=== PATIENT | female | born 1995 | race Two or more races ===

== ENCOUNTER 2019-03-24 16:09 | Emergency (ER) | payer MEDICAID ==
--- NOTE | 2019-03-24 16:29 | EDM.PDOC ---
ED HPI GENERAL MEDICAL PROBLEM - General Chief Complaint: Skin Complaint Stated Complaint: FACE RASH Time Seen by Provider: 03/24/19 16:19 Source of Information: Reports: Patient, RN Notes Reviewed History Limitations: Reports: No Limitations - History of Present Illness INITIAL COMMENTS - FREE TEXT/NARRATIVE: Patient is a 23-year-old female who presents to the ED for evaluation of a facial rash. Patient notes that around 05 March, she use some new facial products. And she noticed she developed a rash on her upper lip, a couple days later. This is in the bucchal folds, like her smile lines.. She states that she went to the walk-in clinic on 1016, and was given triamcinolone cream for this, and still hasn't helped her gotten much better. She notes that the pain is around an 8 out of 10 today. She went back to the walk-in clinic, and she was given mupirocin, but states that this made the rash sting, so she comes to the ER for evaluation. She notes that the dry air aggravates the pain, and makes the rash her worse. She notes this to be a burning/throbbing/cardiac swelling or full feeling in nature. She notes that she took one dose of Tylenol this morning, but has not taken it since, as she does not like to take medications much. 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: Psychiatric History: Reports: Anxiety - Past Surgical History HEENT Surgical History: Reports: Other (See Below) Other HEENT Surgeries/Procedures: one wisdom tooth removed Female Surgical History: Reports: D&C Social & Family History - Family History Family Medical History: Noncontributory Oncologic: Reports: Cervix, Ovarian - Caffeine Use Caffeine Use: Reports: Coffee ED ROS GENERAL - Review of Systems Review Of Systems: See Below Constitutional: Denies: Fever, Chills HEENT: Reports: No Symptoms Respiratory: Denies: Shortness of Breath Cardiovascular: Denies: Chest Pain Endocrine: Reports: No Symptoms GI/Abdominal: Denies: Constipation, Diarrhea, Nausea, Vomiting : Reports: No Symptoms Musculoskeletal: Reports: No Symptoms Skin: Reports: Rash (SEE HPI) Neurological: Reports: No Symptoms Psychiatric: Reports: No Symptoms ED EXAM, SKIN/RASH Exam: See Below Exam Limited By: No Limitations General Appearance: Alert, WD/WN, No Apparent Distress Eye Exam: Bilateral Eye: EOMI, Normal Inspection, PERRL Throat/Mouth: Normal Inspection, Normal Lips, Normal Teeth, Normal Gums, Normal Oropharynx, Normal Voice, No Airway Compromise Head: Atraumatic, Normocephalic, Facial Tenderness (facial rash, see skin assessment) Neck: Normal Inspection Respiratory/Chest: No Respiratory Distress, Lungs Clear, Normal Breath Sounds, No Accessory Muscle Use, Chest Non-Tender Cardiovascular: Normal Peripheral Pulses, Regular Rate, Rhythm, No Murmur Extremities: Normal Inspection, Normal Capillary Refill Neurological: Alert, Oriented, Normal Cognition, No Motor/Sensory Deficits Psychiatric: Normal Affect, Normal Mood Skin: Warm, Dry, Intact, Normal Color, Rash (Erythematous raised rash, this looks like a comma kathy on both sides of her cheeks, there is some crusting noted, and looks rather irritated.) Location, Skin: Face Characteristics: Macular (raised, plaque-like), Erythematous Associated features: Crusting Front/Back Body Diagram: 1 - rash 2 - rash Course - Vital Signs Last Recorded V/S: Last Vital Signs Temp 98.4 F 03/24/19 16:19 Pulse 114 H 03/24/19 16:19 Resp 18 03/24/19 16:19 BP 142/98 H 03/24/19 16:19 Pulse Ox 99 03/24/19 16:19 - Orders/Labs/Meds Meds: Medications Discontinued Medications Generic Name Dose Route Start Last Admin Trade Name Freq PRN Reason Stop Dose Admin Ketorolac Tromethamine 30 mg 03/24/19 16:37 Toradol IM 03/24/19 16:38 ONETIME ONE - Re-Assessments/Exams Free Text/Narrative Re-Assessment/Exam: 03/24/19 16:49 Patient presents to the ED for evaluation of her rash. It does appear that this started as a contact irritant in nature. It appears that the triamcinolone hasn' t really helped much. I will start her on Oral prednisone, and recommend that she use vaseline to keep the rash as moist as possible. She can use tylenol or ibuprofen for further pain relief. Departure - Departure Time of Disposition: 16:52 Disposition: Home, Self-Care 01 Condition: Fair Clinical Impression: Contact dermatitis Qualifiers: Contact dermatitis type: irritant Contact dermatitis trigger: cosmetics Qualified Code(s): L24.3 - Irritant contact dermatitis due to cosmetics - Discharge Information *PRESCRIPTION DRUG MONITORING PROGRAM REVIEWED*: No *COPY OF PRESCRIPTION DRUG MONITORING REPORT IN PATIENT CATHERINE: No Prescriptions: predniSONE 20 mg PO ASDIRECTED #15 tab Instructions: Contact Dermatitis Referrals: Lakesha Moraes MD [Primary Care Provider] - Forms: ED Department Discharge Additional Instructions: You were evaluated in the ER today regarding your facial rash. It is likely that your rash started as a contact irritant in nature, and has just not gotten better. You were started on a course of oral prednisone, please take as directed. This was your electronically prescribed to the [place] pharmacy located in the [facility]. Recommend that you keep the rash well moistened with Vaseline. You may take 600 mg ibuprofen or 500 mg Tylenol every 6 hours as needed for further pain relief. Do not exceed 4000 mg Tylenol or 3200 mg ibuprofen in a 24 -hour time span. You may try to use ice packs to the area as well to help relieve the swelling. Please return to the ED if your symptoms should change or worsen
[2019-03-24] MEDS ORDERED: Ketorolac 30 MG/ML SDV IM ONE (16:37)
== END 2019-03-24 17:11 | disposition home or self-care (01) ==
LOC: JD.ED 16:09
DX: L24.3 Irritant contact dermatitis due to cosmetics (principal)
CPT/HCPCS: 96372; 99282; J1885

== ENCOUNTER 2021-09-30 08:56 | Emergency (ER) | payer MEDICAID ==
[2021-09-30] MEDS ORDERED: Ketorolac 15 MG/ML SDV IVPUSH ONE (09:40)
[2021-09-30] MEDS ORDERED: Iopamidol 755 Mg/ML 100 ML Bottle IVPUSH ONE (09:48)
[2021-09-30] MEDS: Sodium Chloride 0.9% 10 ML Syringe FLUSH PRN ×2 (09:49→10:06)
[2021-09-30] MEDS ORDERED: Sodium Chloride 0.9% 100 ML IV SCH (10:00)
[2021-09-30] MEDS ORDERED: LORazepam 0.5 MG Tab PO ONE (10:41)
== END 2021-09-30 11:05 | disposition home or self-care (01) ==
LOC: JD.ED 08:56
DX: R07.89 Other chest pain (principal)
CPT/HCPCS: 36415; 71275; 80053; 84484; 85025; 85610; 93005; 96374; 99285; A9270; J1885; J3490; Q9967

== ENCOUNTER 2022-01-28 08:35 | Day surgery (SDC) | payer MEDICAID, OTHER ==
[~2022-01-28 08:35] MED LIST: Bupivacaine 0.5% 10 ML SDV ONE; Dextrose 5% in Water 100 ML ONE; Lactated Ringers 1,000 ML IV SCH; Lidocaine 1%/Sod Bicarbonate in NS 8.4% 1 ML Syringe IDERM PRN; Methylene Blue 50 MG/10 ML Ampule ONE; Sodium Chloride 0.9% 10 ML Syringe FLUSH PRN; Sodium Chloride 0.9% 10 ML Syringe FLUSH SCH
[2022-01-28] MEDS ORDERED: Ondansetron 4 MG/2 ML SDV ONE (08:36)
[2022-01-28] MEDS ORDERED: Rocuronium 50 MG/5 ML Vial ONE (08:36)
[2022-01-28] MEDS ORDERED: Lactated Ringers 1,000 ML ONE (08:36)
[2022-01-28] MEDS ORDERED: Propofol 200 MG/20 ML SDV ONE (08:36)
[2022-01-28] MEDS ORDERED: ceFAZolin 2 GM Vial ONE (08:36)
[2022-01-28] MEDS ORDERED: Ketorolac 15 MG/ML SDV ONE (08:36)
[2022-01-28] MEDS ORDERED: Dexamethasone 4 MG/ML 5 ML MDV ONE (08:36)
[2022-01-28] MEDS ORDERED: fentaNYL 250 MCG/5 ML SDV ONE (08:37)
[2022-01-28] MEDS ORDERED: Midazolam 1 MG/ML 2 ML SDV ONE (08:37)
[2022-01-28] MEDS ORDERED: diphenhydrAMINE 50 MG/ML SDV IVPUSH PRN (09:54)
[2022-01-28] MEDS ORDERED: fentaNYL 100 MCG/2 ML SDV IVPUSH PRN (09:54)
[2022-01-28] MEDS ORDERED: ePHEDrine 50 MG/ML SDV IVPUSH PRN (09:54)
[2022-01-28] MEDS ORDERED: Phenylephrine 1% 10 MG/ML SDV IVPUSH PRN (09:54)
[2022-01-28] MEDS ORDERED: Ondansetron 4 MG/2 ML SDV IVPUSH PRN ×2 (09:54→10:34)
[2022-01-28] MEDS ORDERED: Neostigmine Methylsulfate 10 MG/10 ML MDV ONE (10:06)
[2022-01-28] MEDS ORDERED: Acetaminophen 325 MG Tab PO PRN (10:34)
[2022-01-28] MEDS: HYDROmorphone 0.5 MG/0.5 ML Syringe IVPUSH PRN ×2 (10:49→11:41)
[2022-01-28] MEDS ORDERED: Midazolam 1 MG/ML 2 ML SDV IVPUSH PRN (10:52)
[2022-01-28] MEDS ORDERED: Acetaminophen/oxyCODONE 325-5 MG Tab PO ONE (12:19)
== END 2022-01-28 12:47 | disposition home or self-care (01) ==
LOC: JD.SDS 08:35
PROVIDERS: ATTEND Obstetrics & Gynecology
DX: N97.8 Female infertility of other origin (principal); N80.8 Other endometriosis; K21.9 Gastro-esophageal reflux disease without esophagitis; Z98.890 Other specified postprocedural states
CPT/HCPCS: 49321; 58350; 81025; A9270; J0690; J1100; J1170; J1885; J2250; J2405; J2704; J2710; J3010; J3490; J7120; 00952